=== PATIENT | male | born 1955 | race Caucasian/White ===

== ENCOUNTER 2020-08-22 17:19 | Inpatient (IN) ==
[2020-08-22] MEDS ORDERED: MORPHINE 4 MG/1 ML VIAL IV STA (18:30)
[2020-08-22] MEDS ORDERED: methylPREDNISolone SOD SUC 125 MG/2 ML VIAL IV STA (18:30)
[2020-08-22] MEDS ORDERED: ALBUTEROL NEB SOLN 5 MG/ML 20 ML/BOTTLE CONT NEB SCH (18:30)
[2020-08-22] MEDS ORDERED: FUROSEMIDE 100 MG/10 ML VIAL IV STA (18:30)
[2020-08-22] MEDS ORDERED: ONDANSETRON 4 MG/2 ML VIAL IV STA (18:30)
[2020-08-22] MEDS ORDERED: NITROGLYCERIN DRIP 50 MG/250 ML BOTTLE IV SCH (18:30)
[2020-08-22] MEDS ORDERED: NITROGLYCERIN 2% OINT 1 INCH/GM PACK TOP STA (18:40)
[2020-08-22] MEDS ORDERED: NITROGLYCERIN 2% OINT 1 INCH/GM PACK TOP ONE (18:43)
[2020-08-22 18:46] LABS: Basophils # 0.1 10*3/uL (0.0-0.2); Basophils % 0.5 % (0.0-0.8); Eosinophils # 0.1 10*3/uL (0.0-0.87); Eosinophils % 0.9 % (0.00-10.9); Hematocrit 45.7 VOL% (42.0-52.0); Hemoglobin 13.9 GM/DL (14.0-18.0); Immature Granulocytes % 0.3 %; Immature Granulocytes Absolute 0.03 #; Lymphocytes # 1.4 10*3/uL (1.4-4.0); Lymphocytes % 11.9 % (21.2-54.2); Mean Corpuscular HGB Conc 30.4 GM/DL (32-36); Mean Corpuscular Volume 94.2 FL (87-102); Mean Platelet Volume 10.8 FL (9.6-12.0); Monocytes % 10.1 % (1.7-12.7); Neutrophils % 76.3 % (38.7-73.9); Platelet Count 204 T/CUMM (130-400); Red Blood Count 4.85 MC/CUMM (3.8-5.5); Red Cell Distribution Width 16.5 % (9.3-17.3); White Blood Count 11.5 T/CUMM (4-12)
[2020-08-22 19:01] LABS: INR 1.1; PT Patient Result 11.9 SECS (9.8-11.9)
[2020-08-22 19:09] LABS: Albumin 3.2 G/DL (3.4-5.0); Bilirubin,Total 0.9 MG/DL (0.2-1.0); Calcium 8.7 MG/DL (8.5-10.1); Potassium 4.1 MMOL/L (3.5-5.1); Total Protein 7.9 G/DL (6.4-8.2)
[2020-08-22] MEDS ORDERED: INSULIN REGULAR 100 UNIT/ML SUBCUT STA (19:18)
[2020-08-22] MEDS ORDERED: DEXTROSE 50% 25 GM/50 ML VIAL IV PRN ×2 (19:34)
[2020-08-22] MEDS ORDERED: GLUCAGON 1 MG VIAL IM PRN ×2 (19:34)
[2020-08-22 19:50] LABS: Bilirubin,Urine Negative (Negative); Blood, Urine Small mg/dL (Negative); Glucose,Urine (UA) >=500 mg/dL (Negative); Ketones,Urine Negative (Negative); Mucus,Urine Occasional /LPF (Occasional); Nitrite,Urine Negative (Negative); Protein,Urine 30 MG/DL; RBC,Urine 3 /HPF (0-4); Urine Appearance CLEAR (Clear); Urine Color Straw (Yellow); Urine Specific Gravity 1.005 (1.001-1.035); Urine Urobilinogen < 2.0 EU/DL (0.2-1.0); WBC,Urine <1 /HPF (0-6)
[2020-08-22] MEDS ORDERED: ENOXAPARIN 40 MG/0.4 ML SYRINGE SUBCUT SCH (20:00)
[2020-08-22] MEDS ORDERED: ALBUTEROL/IPRATROPIUM 3 ML NEB RESP TX PRN (20:11)
[2020-08-22 20:20] LABS: Ferritin 117.5 ng/ml (26-388)
[2020-08-22] MEDS ORDERED: LEVOFLOXACIN INJ 750 MG in PREMIX 1 EACH IV SCH (20:30)
[2020-08-22] MEDS: methylPREDNISolone SOD SUC 40 MG/1 ML VIAL IV SCH (22:31)
[2020-08-22] MEDS: carvediloL 3.125 MG TABLET PO SCH (22:31)
[2020-08-22] MEDS: TICAGRELOR 90 MG TABLET PO SCH (22:31)
[2020-08-22] MEDS: APIXABAN 5 MG TABLET PO SCH (22:31)
[2020-08-22] MEDS: FLUTICASONE/SALMETEROL 500-50 DISKUS 14 DOSE INH SCH (22:32)
[2020-08-22] MEDS: INSULIN REGULAR 100 UNIT/ML SUBCUT SCH (22:45)
[2020-08-23 01:15] LABS: Basophils % 0.3 % (0.0-0.8); Hematocrit 43.6 VOL% (42.0-52.0); Hemoglobin 13.4 GM/DL (14.0-18.0); Immature Granulocytes % 1.7 %; Lymphocytes # 0.4 10*3/uL (1.4-4.0); Lymphocytes % 3.2 % (21.2-54.2); Mean Corpuscular HGB Conc 30.7 GM/DL (32-36); Mean Corpuscular Volume 93.4 FL (87-102); Mean Platelet Volume 10.2 FL (9.6-12.0); Monocytes % 1.3 % (1.7-12.7); Neutrophils % 93.5 % (38.7-73.9); Platelet Count 213 T/CUMM (130-400); Red Blood Count 4.67 MC/CUMM (3.8-5.5); Red Cell Distribution Width 16.3 % (9.3-17.3); White Blood Count 11.5 T/CUMM (4-12)
[2020-08-23 01:42] LABS: Calcium 8.6 MG/DL (8.5-10.1); Osmolality,Calculated 281.2 MOS/KG (273-304); Potassium 4.4 MMOL/L (3.5-5.1); Risk Ratio 1.39; Thyroid Stimulating Hormone 0.686 uIU/ml (0.358-3.74); VLDL CHOLESTEROL 10.8 MG/DL
[2020-08-23 02:35] LABS: Lymphocytes 1 % (20-55); Segmented Neutrophils 98 % (50-85); Total Cells Counted 100
[2020-08-23 02:37] LABS: Anisocytosis Slight; Macrocytosis Slight; Microcytosis Slight
[2020-08-23 02:40] LABS: Platelet Estimate Adequate
[2020-08-23] MEDS: methylPREDNISolone SOD SUC 40 MG/1 ML VIAL IV SCH ×4 (03:11→21:28)
[2020-08-23] MEDS: ASPIRIN EC 81 MG TABLET PO SCH (08:26)
[2020-08-23] MEDS: INSULIN REGULAR 100 UNIT/ML SUBCUT SCH ×4 (08:26→21:28)
[2020-08-23] MEDS: carvediloL 3.125 MG TABLET PO SCH ×2 (08:27→21:28)
[2020-08-23] MEDS: PANTOPRAZOLE 40 MG TABLET PO SCH (08:27)
[2020-08-23] MEDS: TICAGRELOR 90 MG TABLET PO SCH ×2 (08:27→21:28)
[2020-08-23] MEDS: APIXABAN 5 MG TABLET PO SCH ×2 (08:27→21:28)
[2020-08-23] MEDS: allopurinoL 300 MG TABLET PO SCH (08:27)
[2020-08-23] MEDS: lisinopriL 10 MG TABLET PO SCH (08:27)
[2020-08-23] MEDS: FLUTICASONE/SALMETEROL 500-50 DISKUS 14 DOSE INH SCH ×2 (08:30→21:29)
[2020-08-23] MEDS: ALBUTEROL/IPRATROPIUM 3 ML NEB RESP TX SCH ×2 (13:28→20:20)
[2020-08-23] MEDS: FUROSEMIDE 40 MG/4 ML VIAL IV SCH (16:09)
[2020-08-23] MEDS ORDERED: ROSUVASTATIN 20 MG TABLET PO SCH ×2 (19:00→21:00)
[2020-08-23] MEDS ORDERED: diphenhydrAMINE CAP 25 MG CAPSULE PO ONE (21:14)
[2020-08-24] MEDS: ALBUTEROL/IPRATROPIUM 3 ML NEB RESP TX SCH ×2 (01:45→07:30)
[2020-08-24] MEDS: methylPREDNISolone SOD SUC 40 MG/1 ML VIAL IV SCH ×2 (03:21→08:31)
[2020-08-24 06:09] LABS: Basophils % 0.1 % (0.0-0.8); Hematocrit 42.1 VOL% (42.0-52.0); Hemoglobin 13.3 GM/DL (14.0-18.0); Immature Granulocytes % 0.7 %; Lymphocytes # 0.7 10*3/uL (1.4-4.0); Lymphocytes % 4.7 % (21.2-54.2); Mean Corpuscular HGB Conc 31.6 GM/DL (32-36); Mean Corpuscular Volume 91.7 FL (87-102); Mean Platelet Volume 10.5 FL (9.6-12.0); Monocytes % 4.1 % (1.7-12.7); Neutrophils % 90.4 % (38.7-73.9); Platelet Count 189 T/CUMM (130-400); Red Blood Count 4.59 MC/CUMM (3.8-5.5); Red Cell Distribution Width 16.3 % (9.3-17.3); White Blood Count 14.3 T/CUMM (4-12)
[2020-08-24 06:29] LABS: Lymphocytes 2 % (20-55); Platelet Estimate Adequate; Segmented Neutrophils 95 % (50-85); Total Cells Counted 100
[2020-08-24 06:30] LABS: Hypochromasia Slight; Microcytosis Slight
[2020-08-24 06:36] LABS: Calcium 8.4 MG/DL (8.5-10.1); Osmolality,Calculated 286.1 MOS/KG (273-304); Potassium 4.7 MMOL/L (3.5-5.1)
[2020-08-24] MEDS: INSULIN REGULAR 100 UNIT/ML SUBCUT SCH (08:30)
[2020-08-24] MEDS: allopurinoL 300 MG TABLET PO SCH (08:30)
[2020-08-24] MEDS: ASPIRIN EC 81 MG TABLET PO SCH (08:31)
[2020-08-24] MEDS: APIXABAN 5 MG TABLET PO SCH (08:31)
[2020-08-24] MEDS: PANTOPRAZOLE 40 MG TABLET PO SCH (08:31)
[2020-08-24] MEDS: carvediloL 3.125 MG TABLET PO SCH (08:31)
[2020-08-24] MEDS: TICAGRELOR 90 MG TABLET PO SCH (08:31)
[2020-08-24] MEDS: lisinopriL 10 MG TABLET PO SCH (08:31)
[2020-08-24] MEDS: FLUTICASONE/SALMETEROL 500-50 DISKUS 14 DOSE INH SCH (08:32)
[2020-08-24 08:43] VITALS: BP 127/70
[2020-08-24] MEDS: FUROSEMIDE 40 MG/4 ML VIAL IV SCH (09:07)
== END 2020-08-24 10:51 | disposition home or self-care (01) | DRG 190 ==
LOC: N.ED 17:19 → N.EDINP 20:06 → N.TELEN 20:38
PROVIDERS: ADMIT Internal Medicine; ATTEND Internal Medicine

== ENCOUNTER 2021-07-31 15:53 | Inpatient (IN) ==
[2021-07-31] MEDS ORDERED: methylPREDNISolone SOD SUC 125 MG/2 ML VIAL IV STA (17:04)
[2021-07-31] MEDS ORDERED: ALBUTEROL 2.5 MG/3 ML NEB RESP TX STA (17:04)
[2021-07-31] MEDS ORDERED: FUROSEMIDE 40 MG/4 ML VIAL IV STA (17:22)
[2021-07-31 18:12] LABS: Albumin 2.8 G/DL (3.4-5.0); Basophils # 0.1 10*3/uL (0.0-0.2); Basophils % 0.7 % (0.0-0.8); Bilirubin,Total 1.1 MG/DL (0.20-1.00); Calcium 8.8 MG/DL (8.5-10.1); Eosinophils % 0.4 % (0.00-10.9); Hematocrit 47.5 VOL% (42.0-52.0); Hemoglobin 14.3 GM/DL (14.0-18.0); Immature Granulocytes % 0.4 %; Immature Granulocytes Absolute 0.04 #; Lymphocytes # 1.2 10*3/uL (1.4-4.0); Lymphocytes % 12.3 % (21.2-54.2); Mean Corpuscular HGB Conc 30.1 GM/DL (32-36); Mean Corpuscular Volume 89.5 FL (87-102); Mean Platelet Volume 10.1 FL (9.6-12.0); Monocytes % 11.9 % (1.7-12.7); Neutrophils % 74.3 % (38.7-73.9); Osmolality,Calculated 276.1 MOS/KG (273-304); Platelet Count 216 T/CUMM (130-400); Potassium 3.3 MMOL/L (3.5-5.1); Red Blood Count 5.31 MC/CUMM (3.8-5.5); Red Cell Distribution Width 17.5 % (9.3-17.3); Total Protein 8.9 G/DL (6.4-8.2); White Blood Count 9.6 T/CUMM (4-12)
[2021-07-31] MEDS ORDERED: GLUCAGON 1 MG VIAL IM PRN (19:02)
[2021-07-31] MEDS ORDERED: POTASSIUM CHLORIDE 20 MEQ TABLET PO STA (19:10)
[2021-07-31] MEDS ORDERED: DOCUSATE SODIUM 100 MG CAPSULE PO PRN (19:12)
[2021-07-31] MEDS ORDERED: LACTULOSE 20 GM/30 ML UDCUP PO PRN (19:12)
[2021-07-31] MEDS ORDERED: NICOTINE 21 MG/24 HR PATCH TRANSDERM PRN (19:12)
[2021-07-31] MEDS ORDERED: hydrALAZINE 20 MG/1 ML VIAL IV PRN (19:12)
[2021-07-31] MEDS ORDERED: ONDANSETRON 4 MG/2 ML VIAL IV PRN (19:12)
[2021-07-31] MEDS ORDERED: DEXTROSE 10% 250 ML BAG IV PRN (19:18)
[2021-07-31] MEDS: INSULIN REGULAR 100 UNIT/ML SUBCUT SCH (21:14)
[2021-07-31] MEDS: carvediloL 3.125 MG TABLET PO SCH (21:18)
[2021-07-31] MEDS: guaiFENesin/DM ER 600-30 MG TABLET PO SCH (21:18)
[2021-07-31] MEDS: APIXABAN 5 MG TABLET PO SCH (21:18)
[2021-07-31] MEDS: NICOTINE 21 MG/24 HR PATCH TRANSDERM SCH (21:19)
[2021-07-31] MEDS: FUROSEMIDE 40 MG/4 ML VIAL IV SCH (21:20)
[2021-07-31] MEDS: LEVOFLOXACIN INJ 750 MG/150 ML PREMIX IV SCH (21:22)
[2021-07-31] MEDS: buPROPion SR 100 MG TABLET PO SCH (22:49)
[2021-08-01] MEDS: ALBUTEROL/IPRATROPIUM 3 ML NEB RESP TX SCH ×4 (00:25→19:54)
[2021-08-01 05:00] LABS: Basophils % 0.1 % (0.0-0.8); Hematocrit 46.9 VOL% (42.0-52.0); Immature Granulocytes % 0.4 %; Immature Granulocytes Absolute 0.03 #; Lymphocytes # 0.4 10*3/uL (1.4-4.0); Lymphocytes % 5.8 % (21.2-54.2); Mean Corpuscular HGB Conc 30.3 GM/DL (32-36); Mean Corpuscular Volume 87.7 FL (87-102); Mean Platelet Volume 10.4 FL (9.6-12.0); Monocytes % 2.2 % (1.7-12.7); Neutrophils % 91.5 % (38.7-73.9); Platelet Count 230 T/CUMM (130-400); Red Blood Count 5.35 MC/CUMM (3.8-5.5); Red Cell Distribution Width 17.4 % (9.3-17.3); White Blood Count 7.2 T/CUMM (4-12)
[2021-08-01 05:11] LABS: Hemoglobin 14.2 GM/DL (14.0-18.0)
[2021-08-01 05:29] LABS: Calcium 8.5 MG/DL (8.5-10.1); Osmolality,Calculated 284.1 MOS/KG (273-304); Potassium 3.5 MMOL/L (3.5-5.1); Risk Ratio 1.55; Thyroid Stimulating Hormone 0.759 uIU/ml (0.358-3.74); VLDL Cholesterol 10.4 MG/DL
[2021-08-01 05:44] LABS: Lymphocytes 4 % (20-55); Platelet Estimate Adequate; Segmented Neutrophils 96 % (50-85); Total Cells Counted 100
[2021-08-01] MEDS: NICOTINE 21 MG/24 HR PATCH TRANSDERM SCH (09:19)
[2021-08-01] MEDS: FUROSEMIDE 40 MG/4 ML VIAL IV SCH ×2 (09:19→22:02)
[2021-08-01] MEDS: APIXABAN 5 MG TABLET PO SCH ×2 (09:20→22:00)
[2021-08-01] MEDS: PANTOPRAZOLE 40 MG TABLET PO SCH (09:20)
[2021-08-01] MEDS: methylPREDNISolone SOD SUC 40 MG/1 ML VIAL IV SCH ×2 (09:20→22:01)
[2021-08-01] MEDS: POTASSIUM CHLORIDE 20 MEQ TABLET PO SCH (09:20)
[2021-08-01] MEDS: carvediloL 3.125 MG TABLET PO SCH ×2 (09:20→22:00)
[2021-08-01] MEDS: buPROPion SR 100 MG TABLET PO SCH ×2 (09:20→22:00)
[2021-08-01] MEDS: guaiFENesin/DM ER 600-30 MG TABLET PO SCH ×2 (09:20→22:00)
[2021-08-01] MEDS: INSULIN REGULAR 100 UNIT/ML SUBCUT SCH ×4 (11:10→22:01)
[2021-08-01] MEDS ORDERED: DEXTROSE 10% 250 ML BAG IV PRN (14:11)
[2021-08-01] MEDS: FLUTICASONE/SALMETEROL 500-50 DISKUS 14 DOSE INH SCH (22:00)
[2021-08-01] MEDS: ROSUVASTATIN 20 MG TABLET PO SCH (22:00)
[2021-08-01] MEDS: LEVOFLOXACIN INJ 750 MG/150 ML PREMIX IV SCH (22:12)
[2021-08-02] MEDS: ALBUTEROL/IPRATROPIUM 3 ML NEB RESP TX SCH ×4 (01:01→19:25)
[2021-08-02 05:41] LABS: Calcium 8.6 MG/DL (8.5-10.1); Osmolality,Calculated 283.5 MOS/KG (273-304); Potassium 3.8 MMOL/L (3.5-5.1)
[2021-08-02 05:59] LABS: Basophils % 0.1 % (0.0-0.8); Hemoglobin 13.4 GM/DL (14.0-18.0); Immature Granulocytes % 0.8 %; Lymphocytes # 0.5 10*3/uL (1.4-4.0); Lymphocytes % 4.4 % (21.2-54.2); Mean Corpuscular HGB Conc 30.5 GM/DL (32-36); Mean Corpuscular Volume 88.9 FL (87-102); Mean Platelet Volume 10.5 FL (9.6-12.0); Monocytes % 5.6 % (1.7-12.7); Neutrophils % 89.1 % (38.7-73.9); Platelet Count 202 T/CUMM (130-400); Red Blood Count 4.95 MC/CUMM (3.8-5.5); Red Cell Distribution Width 17.4 % (9.3-17.3); White Blood Count 12.1 T/CUMM (4-12)
[2021-08-02 06:17] LABS: Lymphocytes 5 % (20-55); Platelet Estimate Adequate; Segmented Neutrophils 90 % (50-85); Total Cells Counted 100
[2021-08-02 06:18] LABS: Hypochromia Slight; Microcytosis Slight
[2021-08-02] MEDS: NICOTINE 21 MG/24 HR PATCH TRANSDERM SCH (09:22)
[2021-08-02] MEDS: POTASSIUM CHLORIDE 20 MEQ TABLET PO SCH (09:22)
[2021-08-02] MEDS: PANTOPRAZOLE 40 MG TABLET PO SCH (09:23)
[2021-08-02] MEDS: APIXABAN 5 MG TABLET PO SCH ×2 (09:23→20:51)
[2021-08-02] MEDS: carvediloL 3.125 MG TABLET PO SCH ×2 (09:23→20:51)
[2021-08-02] MEDS: guaiFENesin/DM ER 600-30 MG TABLET PO SCH ×2 (09:23→20:51)
[2021-08-02] MEDS: FUROSEMIDE 80 MG TABLET PO SCH (09:23)
[2021-08-02] MEDS: CLOPIDOGREL 75 MG TABLET PO SCH (09:23)
[2021-08-02] MEDS: buPROPion SR 100 MG TABLET PO SCH ×2 (09:23→20:51)
[2021-08-02] MEDS: methylPREDNISolone SOD SUC 40 MG/1 ML VIAL IV SCH ×2 (09:24→20:52)
[2021-08-02] MEDS: INSULIN REGULAR 100 UNIT/ML SUBCUT SCH ×4 (09:24→20:52)
[2021-08-02] MEDS: FLUTICASONE/SALMETEROL 500-50 DISKUS 14 DOSE INH SCH ×2 (09:25→20:51)
[2021-08-02] MEDS: ROSUVASTATIN 20 MG TABLET PO SCH (20:51)
[2021-08-02] MEDS: LEVOFLOXACIN INJ 750 MG/150 ML PREMIX IV SCH (20:58)
[2021-08-03] MEDS: ALBUTEROL/IPRATROPIUM 3 ML NEB RESP TX SCH ×4 (01:16→19:40)
[2021-08-03 05:09] LABS: Calcium 8.6 MG/DL (8.5-10.1); Osmolality,Calculated 288.4 MOS/KG (273-304); Potassium 4.2 MMOL/L (3.5-5.1)
[2021-08-03 05:29] LABS: Basophils % 0.1 % (0.0-0.8); Hemoglobin 13.4 GM/DL (14.0-18.0); Immature Granulocytes % 0.8 %; Immature Granulocytes Absolute 0.09 #; Lymphocytes # 0.6 10*3/uL (1.4-4.0); Lymphocytes % 5.1 % (21.2-54.2); Mean Corpuscular HGB Conc 29.7 GM/DL (32-36); Mean Platelet Volume 10.4 FL (9.6-12.0); Monocytes % 6.8 % (1.7-12.7); Neutrophils % 87.2 % (38.7-73.9); Platelet Count 184 T/CUMM (130-400); Red Blood Count 5.07 MC/CUMM (3.8-5.5); Red Cell Distribution Width 17.4 % (9.3-17.3); White Blood Count 11.8 T/CUMM (4-12)
[2021-08-03 05:33] LABS: Hematocrit 45.1 VOL% (42.0-52.0)
[2021-08-03] MEDS: guaiFENesin/DM ER 600-30 MG TABLET PO SCH ×2 (09:32→20:43)
[2021-08-03] MEDS: buPROPion SR 100 MG TABLET PO SCH ×2 (09:32→20:43)
[2021-08-03] MEDS: CLOPIDOGREL 75 MG TABLET PO SCH (09:32)
[2021-08-03] MEDS: FUROSEMIDE 80 MG TABLET PO SCH (09:33)
[2021-08-03] MEDS: APIXABAN 5 MG TABLET PO SCH ×2 (09:33→20:43)
[2021-08-03] MEDS: POTASSIUM CHLORIDE 20 MEQ TABLET PO SCH (09:33)
[2021-08-03] MEDS: carvediloL 3.125 MG TABLET PO SCH ×2 (09:33→20:43)
[2021-08-03] MEDS: PANTOPRAZOLE 40 MG TABLET PO SCH (09:33)
[2021-08-03] MEDS: NICOTINE 21 MG/24 HR PATCH TRANSDERM SCH (09:34)
[2021-08-03] MEDS: methylPREDNISolone SOD SUC 40 MG/1 ML VIAL IV SCH (10:24)
[2021-08-03] MEDS: INSULIN REGULAR 100 UNIT/ML SUBCUT SCH ×4 (11:14→20:43)
[2021-08-03] MEDS: hydrALAZINE 25 MG TABLET PO SCH ×2 (11:18→20:43)
[2021-08-03] MEDS: FLUTICASONE/SALMETEROL 500-50 DISKUS 14 DOSE INH SCH ×2 (11:18→20:42)
[2021-08-03] MEDS ORDERED: INSULIN GLARGINE 100 UNIT/ML SUBCUT SCH (17:00)
[2021-08-03] MEDS: ROSUVASTATIN 20 MG TABLET PO SCH (20:43)
[2021-08-04] MEDS: ALBUTEROL/IPRATROPIUM 3 ML NEB RESP TX SCH ×2 (01:52→08:01)
[2021-08-04 05:17] LABS: Calcium 8.2 MG/DL (8.5-10.1); Potassium 3.7 MMOL/L (3.5-5.1)
[2021-08-04 05:27] LABS: Basophils % 0.1 % (0.0-0.8); Hematocrit 43.8 VOL% (42.0-52.0); Immature Granulocytes % 0.5 %; Immature Granulocytes Absolute 0.07 #; Lymphocytes # 1.5 10*3/uL (1.4-4.0); Lymphocytes % 12.1 % (21.2-54.2); Mean Corpuscular HGB Conc 30.1 GM/DL (32-36); Mean Corpuscular Volume 88.7 FL (87-102); Mean Platelet Volume 10.5 FL (9.6-12.0); Monocytes % 13.6 % (1.7-12.7); Neutrophils % 73.7 % (38.7-73.9); Platelet Count 183 T/CUMM (130-400); Red Blood Count 4.94 MC/CUMM (3.8-5.5); Red Cell Distribution Width 17.3 % (9.3-17.3); White Blood Count 12.8 T/CUMM (4-12)
[2021-08-04 05:28] LABS: Hemoglobin 13.2 GM/DL (14.0-18.0)
[2021-08-04] MEDS: INSULIN REGULAR 100 UNIT/ML SUBCUT SCH ×2 (07:43→12:34)
[2021-08-04] MEDS ORDERED: LEVOFLOXACIN 250 MG TABLET PO SCH (09:00)
[2021-08-04] MEDS ORDERED: predniSONE 20 MG TABLET PO SCH (09:00)
[2021-08-04] MEDS: guaiFENesin/DM ER 600-30 MG TABLET PO SCH (09:05)
[2021-08-04] MEDS: PANTOPRAZOLE 40 MG TABLET PO SCH (09:05)
[2021-08-04] MEDS: APIXABAN 5 MG TABLET PO SCH (09:05)
[2021-08-04] MEDS: POTASSIUM CHLORIDE 20 MEQ TABLET PO SCH (09:05)
[2021-08-04] MEDS: buPROPion SR 100 MG TABLET PO SCH (09:05)
[2021-08-04] MEDS: CLOPIDOGREL 75 MG TABLET PO SCH (09:05)
[2021-08-04] MEDS: NICOTINE 21 MG/24 HR PATCH TRANSDERM SCH (09:05)
[2021-08-04] MEDS: carvediloL 3.125 MG TABLET PO SCH (09:06)
[2021-08-04] MEDS: hydrALAZINE 25 MG TABLET PO SCH (09:06)
[2021-08-04] MEDS: FLUTICASONE/SALMETEROL 500-50 DISKUS 14 DOSE INH SCH (09:07)
[2021-08-04] MEDS ORDERED: FUROSEMIDE 80 MG TABLET PO ONE (09:26)
[2021-08-04 12:56] VITALS: BP 131/81
== END 2021-08-04 13:04 | disposition home health service (06) | DRG 291 ==
LOC: N.ED 15:53 → SUATTDRO 18:58 → N.EDINP 18:58 → N.TELES 19:43
PROVIDERS: ADMIT Internal Medicine; ATTEND Internal Medicine